=== PATIENT | male | born 1980 | race Caucasian/White ===

== ENCOUNTER 2018-02-24 19:20 | Emergency (ER) | payer OTHER ==
[~2018-02-24] VITALS: Ht 177.8 cm; Wt 127.0 kg
[2018-02-24] MEDS ORDERED: ADDERALL 10 MG10 MG PO (19:29)
[2018-02-24] MEDS ORDERED: CARAFATE 1 GM TA1 GM PO (20:51)
[2018-02-24 21:10] VITALS: BP 135/82
== END 2018-02-24 21:11 | disposition home or self-care (01) ==
LOC: M.ERS 19:20
DX: T17.228A Food in pharynx causing other injury, initial encounter (principal); J45.909 Unspecified asthma, uncomplicated; F17.210 Nicotine dependence, cigarettes, uncomplicated; X58.XXXA Exposure to other specified factors, initial encounter; Y93.89 Activity, other specified; Y92.89 Other specified places as the place of occurrence of the external cause; Y99.8 Other external cause status

== ENCOUNTER → 2020-01-20 | Outpatient (CLI) | payer OTHER ==
[~2020-01-20] MED LIST: ADDERALL 10 MG10 MG PO; CARAFATE 1 GM TA1 GM PO
== END ==
LOC: M.MRI 07:13
DX: M47.817 Spondylosis without myelopathy or radiculopathy, lumbosacral region (principal); M54.41 Lumbago with sciatica, right side; G89.29 Other chronic pain

== ENCOUNTER → 2020-02-08 | Outpatient (CLI) | payer OTHER ==
[~2020-02-08] MED LIST changes: +FLEXERIL PO; +IBUPROFEN 800800 M1 PO; +PROTONIX 20 MG20 MG PO; +TYLENOL WITH CO1 TA1 PO
== END ==
LOC: M.PC 04:46
DX: M17.11 Unilateral primary osteoarthritis, right knee (principal); M47.26 Other spondylosis with radiculopathy, lumbar region; M51.16 Intervertebral disc disorders with radiculopathy, lumbar region; M48.061 Spinal stenosis, lumbar region without neurogenic claudication